=== PATIENT | female | born 1965 | race Caucasian/White ===

== ENCOUNTER → 2016-10-24 | Outpatient (CLI) | payer BC ==
--- NOTE | 2016-10-25 12:32 | MAMMOGRAPHY REPORT ---
ULTRASOUND OF BOTH BREASTS: 10/24/2016 CLINICAL HISTORY: 50 year-old woman with no strong family history of breast cancer presents for [facility] whole breast screening ultrasound for dense breasts, and also to follow-up a probably benign c ircumscribed oval hypoechoic solid-appearing mass in the right breast. COMPARISON: Comparison is made to exams dated: 04/25/2016 mammogram, 02/23/2015 mammogram, 02/17/2014 mammogram, 02/14/2013 ultrasound, 03/01/2012 mammogram, and 01/27/2011 mammogram - [facility]. TECHNIQUE: Real-time high-resolution grayscale ultrasound including color flow Doppler was performed throughout each breast, including the retroareolar breast, and both axillae. FINDINGS: The right breast parenchymal echotexture is heterogeneousdense. In the 11:30 to 12:00 r ight breast, 1 cm from the nipple, there is a rounded hypoechoic solid-appearing mass measuring 8.5 x 7.1 x 10.3 mm. In the 12:00 right breast, 1 cm from the nipple, there is an oval parallel circums cribed hypoechoic solid-appearing mass measuring 6.6 x 4.3 x 7.7 mm. There is an adjacent hypoechoi c solid versus cystic masses, oval, parallel and circumscribed. This measures 7.6 x 6.3 mm. A pollo gn anechoic simple cyst is identified in the right 11:00 breast, 4 cm from the nipple, measuring 10. 5 x 10.6 x 11.0 mm. 2 abutting anechoic cysts are seen in the superficial 11:00 right breast, 2 cm from the nipple, measuring 27.6 x 8.3 mm in conglomerate. There is a rounded nearly anechoic cystic appearing mass in the 10:00 periareolar right breast measuring 4.4 x 4.8 x 5.4 mm. A hypoechoic po ssible solid mass versus cystic mass with internal debris is identified in the 10:00 right breast, 3 cm from the nipple, measuring 6.0 x 4.6 x 6.7 mm. There is a multilobulated cyst with multiple int ernal nonvascular septations in the 9:00 right breast, 8 cm from the nipple, measuring 15.7 x 6.8 x 13.4 mm. In the 9:00 right breast, 4 cm from the nipple, there is a nearly anechoic cystic appearin g mass with posterior acoustic enhancement, measuring 14.3 mm in maximum dimension. An isoechoic so lid-appearing mass in the 9:00 right breast, to 7 m from the nipple measures 5.7 x 4.1 mm. This is not as well appreciated in the radial plane and may simply represent stromal fibrosis. There is a r ounded hypoechoic to nearly anechoic cystic appearing mass in the 8:00 right breast, 8 cm from the n ipple, measuring 5.7 x 4.6 x 8.8 mm. A few other smaller scattered cysts are seen throughout the ri ght breast and real-time scanning. No other discrete solid or suspicious mass is identified. No [place] spicious right axillary lymphadenopathy. The left breast parenchymal echotexture is heterogeneousdense. In the 12:00 left breast, 1 cm from the nipple, there is a rounded hypoechoic solid versus cystic masses measuring 4.9 x 4.9 x 4.4 mm. A probable cyst with internal nonvascular septation and thickened rim in the 12:00 periareolar left breast measures 7.4 x 5.2 x 4.7 mm. There is a bilobed solid-appearing mass in the 1:30 left breas t, 7 cm from the nipple, measuring 4.7 x 2.4 x 4.7 mm. A dominant anechoic simple cyst is again see n in the 1:30 left breast, 12 cm from the nipple, measuring 20.2 x 14.6 mm. There is a lobulated hy poechoic cystic-appearing mass in the 4:00 left breast, 6 cm from the nipple, measuring 8.2 x 6.7 x 6.7 mm. A rounded hypoechoic solid versus cystic mass in the 7:00 left breast, 5 cm from the nipple , measures 4.7 x 4.1 x 5.6 mm. Another cystic-appearing mass in the 9:00 left breast, 4 cm from the nipple, measures 5.1 x 3.1 x 3.9 mm. There is an isoechoic, slightly hypoechoic solid versus cysti c mass in the 10:00 left breast, 3 cm from the nipple, measuring 9.1 x 6.0 x 9.2 mm. Other smaller anechoic simple cysts were identified throughout the left breast and real-time scanning. No other s uspicious solid mass is seen. No suspicious left axillary lymphadenopathy. IMPRESSION: ACR BI-RADS CATEGORY 4: SUSPICIOUS - FOLLOW-UP RECOMMENDED There are multiple cysts scattered bilaterally in the breasts, compatible with fibrocystic changes. There are benign appearing circumscribed solid masses in the breasts as well which most likely repr esent benign fibroadenomas. However, biopsy of the dominant mass in each breast is recommended (the 9 mm mass in the 10:00 left breast, 3 cm from the nipple, and the 10 mm mass in the 11:30 right jose ast, 1 cm from the nipple), and pending benign pathology results the other solid appearing masses ca n be followed in short intervals to ensure stability. These results and recommendations were discussed with the patient at the time of the exam. She tent atively scheduled the biopsies prior to leaving our department. Marilee Artis M.D. ay/:10/24/2016 17:51:03 Electric Sign Wirer: Dr. Marilee Artis, [facility] letter sent: Abnormal 4/5 BI-RADS Code: ACR BI-RADS Category 4: Suspicious
== END | disposition home or self-care (01) ==
LOC: C.MAMM 08:10
PROVIDERS: ATTEND Obstetrics & Gynecology
DX: R92.2 Inconclusive mammogram (principal); N63 Unspecified lump in breast; N60.01 Solitary cyst of right breast; N60.02 Solitary cyst of left breast

== ENCOUNTER → 2016-10-31 | Outpatient (CLI) | payer BC ==
--- NOTE | 2016-10-31 13:44 | Discharge Instructions ---
Discharge Instructions Procedure Procedure Date: Oct 31, 2016. Reason for visit: Bilateral Masses. Discharge Discharge Date: Oct 31, 2016. Discharge Diagnosis: post left breast ultrasound guided cyst aspiration and right breast ultrasound guided core biopsy Instructions Activity Recommendations: Additional Limitations (see below) Return to School/Work: no limitations Recommended Home Diet: No Limitations Provider Instructions: ACTIVITY RECOMMENDATIONS: * No lifting, pushing, pulling or exercising the affected side for three days. RETURN TO SCHOOL/WORK: * You may return to work/school after the procedure, but do not perform any strenuous activities for 24 to 48 hours. MEDICATIONS: * Tylenol (two 325 mg) every four to six hours if needed for mild pain (if not allergic to Tylenol). DIET: * Resume previous diet. SPECIAL CARE INSTRUCTIONS: * Keep biopsy site dry for 24 hours. May shower after 24 hours, but do not soak (bathe) incision. * May remove Tegaderm (plastic patch) tomorrow AFTER showering. * Leave the steri-strips on for one week. Allow the steri-strips to fall off by themselves. If not off after one week, you may remove them. You may place a Bandaid crosswise over the strips, if desired. * Apply ice 10 minutes on and 10 minutes off as needed. * Wear a bra at bedtime to sleep more comfortably for 2-3 days. * Your referring physician should have the results after approximately 5 to 7 business days. * Call for unusual bleeding, fever, drainage, etc or if you have any questions call [phone] during normal business hours or after hours call Dr Artis, . FOLLOW UP VISIT: Follow-up with Referring Physician as scheduled. Katelynn Siegel Recommendations: Call your doctor if: * Temperature above 101 degrees * Pain not relieved by pain medicine ordered * There is increased drainage or redness from any incision * You have any unanswered questions or concerns. Your Doctors Instructions noted above were prepared by provider Marilee Artis. Patient Signature Section: Patient Instructions Signature Page Fatmata Hunt Patient (or Guardian) Signature/Date: I have read and understand the instructions given to me by my caregivers. Caregiver/RN/Doctor Signature/Date: The above-named patient and/or guardian has received patient instructions on this date. + Original Patient Signature Page (only) stays with chart. Please make copy for patient.
--- NOTE | 2016-10-31 16:38 | MAMMOGRAPHY REPORT ---
UNILATERAL RIGHT DIGITAL DIAGNOSTIC MAMMOGRAM TOMOSYNTHESIS: 10/31/2016 CLINICAL HISTORY: Status post ultrasound-guided core biopsy of an indeterminate solid mass in the 12 :00 right breast. Also performed at the same time wasn't ultrasound guided cyst aspiration in the 1 0:00 left breast. Please refer to the report from right breast ultrasound guided core biopsy performed at the same jory e for full detail. IMPRESSION: POST PROCEDURE IMAGING FOR MARKER PLACEMENT Please refer to the report from right breast ultrasound guided core biopsy performed at the same jory e for full detail. Approximately 10% of breast cancers are not detected with mammography. A negative mammographic repor t should not delay biopsy if a clinically suggestive mass is present. Marilee Artis M.D. ay/:10/31/2016 14:33:36 Lot Associate: Jennifer HERNANDEZ)(Leticia), [facility] BI-RADS Code: Post Procedure Imaging For Marker Placement
--- NOTE | 2016-10-31 16:38 | MAMMOGRAPHY REPORT ---
ULTRASOUND GUIDED BIOPSY RIGHT BREAST: 10/31/2016 CLINICAL HISTORY: Multiple masses scattered in each breast, some of which are cystic and others appe ar solid. Patient presents for ultrasound-guided core biopsy for the dominant solid mass in each br east. COMPARISON: Comparison is made to exams dated: 10/24/2016 ultrasound, 04/25/2016 ultrasound, 6 mammogram, 02/28/2016 mammogram, 02/23/2015 mammogram, and 02/17/2014 mammogram - [facility]. PATIENT CONSENT: The procedure, risks and benefits were discussed with the patient and informed writ ten consent was obtained. Specific risks to this procedure include: bleeding, infection, puncture of adjacent structure, nontarget biopsy, sampling error, metal allergy and medication reaction. PROCEDURE DESCRIPTION: First real-time high-resolution ultrasound was performed in the 12:00 right b reast and 10:00 left breast to reevaluate the hypoechoic solid-appearing mass is identified on prior ultrasound performed 10/24/2016. There are again seen and appears similar to the prior exam. Curr ently the mass in the 12:00 right breast appears more solid in nature while the mass in the 10:00 le ft breast may be cystic in nature given that there is faint posterior acoustic enhancement appreciat ed. This area is difficult to evaluate given the depth in the breast surrounded by dense breast tis demetrio and location abutting the pectoralis muscle. I explained to the patient that ultrasound guided cyst aspiration could be attempted prior to core biopsy to see if this mass in the 10:00 left breast indeed represents a cyst. A time out was performed and both breasts were agreed as the sites for biopsy. First the mass in th e 12:00 right breast, 1 cm from the nipple was identified and targeted for biopsy. The skin of the right breast was cleansed with Betadine. 1% buffered lidocaine with and without epinephrine was adm inistered as local anesthesia. A small incision was made in the skin. Through the incision, 4 core biopsy samples were obtained with a 14-gauge achieve spring-loaded biopsy device. A ribbon-shaped metallic biopsy marker was placed within the metal residual mass. The patient tolerated the procedu re well and there was no immediate consultation. Hemostasis was achieved after a few minutes of man ual compression. The samples were sent to the pathology department expedited, in an appropriately l abeled container. And then the isoechoic solid versus cystic mass in the 10:00 left breast was identified and targeted for biopsy. The skin of the left breast was cleansed with Betadine. Sterile drapes were placed in the area. 1% buffered lidocaine with and without epinephrine was administered as local anesthesia. A 22-gauge needle was then advanced to the site of the mass and within the mass and aspiration was performed. This mass resolved completely. After documenting the resolution with an additional ult rasound image, the fluid was sent for cytologic analysis. The patient tolerated the procedure in th e left breast well and there was no significant bleeding after the procedure. Postprocedure right CC and ML 2-D digital and tomosynthesis images were obtained. There is a new ri bbon-shaped metallic biopsy marker in the 12:00 right breast, at the site of the biopsied mass seen on prior ultrasound. Pending benign pathology results and follow-up bilateral diagnostic mammograms and repeat targeted u ltrasound is recommended for other similar appearing smaller masses bilaterally. IMPRESSION: ULTRASOUND GUIDED BIOPSY Status post ultrasound guided core needle biopsy of an indeterminate solid mass in the 12:00 right b reast, and ultrasound-guided cyst aspiration of a cystic mass in the 10:00 left breast. Pending benign pathology results, follow-up bilateral diagnostic mammograms and repeat targeted ultr asound is recommended to ensure stability of other smaller similar appearing masses within each suzie st. Marilee Artis M.D. ay/:10/31/2016 14:31:59 Marble Finisher: Jennifer HERNANDEZ)Shamika), [facility]
== END | disposition home or self-care (01) ==
LOC: C.MAMM 12:35
PROVIDERS: ATTEND Obstetrics & Gynecology
DX: N60.82 Other benign mammary dysplasias of left breast (principal); N60.31 Fibrosclerosis of right breast

== ENCOUNTER → 2017-04-19 | Outpatient (CLI) | payer BC | END | disposition home or self-care (01) | LOC: C.PAPS 11:56 | PROVIDERS: ATTEND Obstetrics & Gynecology | DX: Z01.419 Encounter for gynecological examination (general) (routine) without abnormal findings (principal) ==

== ENCOUNTER → 2017-05-03 | Outpatient (CLI) | payer BC ==
--- NOTE | 2017-05-04 14:55 | MAMMOGRAPHY REPORT ---
BILATERAL DIGITAL DIAGNOSTIC MAMMOGRAM TOMOSYNTHESIS WITH CAD AND TARGETED BILATERAL ULTRASOUND: 05/03 CLINICAL HISTORY: Short interval follow-up of bilateral breast masses. History of benign ultrasound- guided core needle biopsy of a right 12:00 breast mass October 2016. Also with ultrasound guided aspir ation of a left breast mass. TECHNIQUE: Breast tomosynthesis in addition to standard 2D mammography was performed. Current study was also evaluated with a Computer Aided Detection (CAD) system. Bilateral CC and MLO 2-D and tomosy nthesis images were obtained. COMPARISON: Comparison is made to exams dated: 10/31/2016 mammogram, 10/31/2016 ultrasound biopsy, 10/05 ultrasound, 04/25/2016 ultrasound, 04/25/2016 mammogram, and 02/28/2016 mammogram - [facility]. BREAST COMPOSITION: The tissue of both breasts is extremely dense, which lowers the sensitivity of m ammography. FINDINGS: There are no suspicious masses, calcifications, or areas of architectural distortion noted in either breast mammographically. There has been no significant interval change compared to prior exams. A biopsy marker clip is noted in the right upper outer quadrant from prior benign ultrasound guided biopsy. Scattered bilateral benign-appearing calcifications are not significantly changed. M ultiple obscured masses are again noted bilaterally, which correspond with the masses seen on ultraso und. Targeted ultrasound was performed of the area of the previously seen masses for which follow-up was r ecommended. The right breast at 12:00, 1 cm from the nipple, again noted is a round circumscribed hy poechoic 5 x 6 mm mass, not significantly changed. Another hypoechoic circumscribed 5 mm mass in the right 12:00 breast, 1 cm from the nipple, is also unchanged. In the right breast at 8:00, 8 cm from the nipple, again noted is a bilobed circumscribed hypoechoic mass which measures 1.8 x 0.4 x 0.6 cm , unchanged compared to the October 2016 exam when accounting for differences in measurement technique. These hypoechoic masses likely represent complicated cysts. In the right breast at 9:00, 2 cm from the nipple, there is an isoechoic 6 x 3 x 6 mm mass which is stable and is probably benign and likel y represents normal breast tissue. In the right breast at 9:00, 4 cm from the nipple, there is a rou nd circumscribed partially anechoic and partially hypoechoic 1.4 cm mass which is stable and likely r epresents a complicated cyst. In the right breast at 10:00, 3 cm from the nipple, there is a round c ircumscribed 5 x 5 mm mass which is partially anechoic and partially hypoechoic, which is not signifi cantly changed and likely represents a complicated cyst. In the right breast at 10:00 periareolar re gion, there is a nearly anechoic circumscribed round 5 x 5 x 5 mm mass, which is unchanged and is pro bably benign and likely represents a cyst. In the left breast at 12:00, 1 cm from the nipple, there is an oval nearly anechoic circumscribed 10 x 8 mm mass which likely represents a cyst. Also in the left breast at 12:00, 1 cm from the nipple, is a round circumscribed hypoechoic 4 x 5 x 5 mm mass which is unchanged and likely represents a cyst . In the left 12:00 periareolar breast, there is a anechoic circumscribed mass with a thin internal septation measuring 6 x 5 mm, not significantly changed and likely represents a small cyst cluster. In the left breast at 1:30, 7 cm from the nipple, there is an oval circumscribed hypoechoic 5 x 4 mm mass, also unchanged and likely represents a cyst. In the left breast at 4:00, 6 cm from the nipple, there is a round circumscribed hypoechoic 5 x 4 mm mass, which appears decreased compared to the Yonatan h 2017 exam, previously measuring 8 x 7 x 7 mm, and is considered benign given the interval decrease in size and likely represents a cyst. In the left breast at 7:00, 5 cm from the nipple, there is a r ound hypoechoic circumscribed 4 x 4 mm mass, not significantly changed and likely represents a cyst. In the left breast at 9:00, 4 cm from the nipple, there is an oval circumscribed hypoechoic 5 x 5 mm mass, not significantly changed and likely represents a cyst. In the left breast at 10:00, 3 cm in the nipple, there is an oval circumscribed hypoechoic 9 x 5 mm mass, not significantly changed. Given the multiplicity and bilaterality of the hypoechoic masses and given the benign morphology incl uding circumscribed margins, the masses are probably benign and likely represent cysts, versus benign solid masses such as fibroadenomas. Recommend another short interval follow-up ultrasound in 6 tang hs to confirm longer stability. IMPRESSION: ACR-BI-RADS CATEGORY 3: PROBABLY BENIGN, TARGETED ULTRASOUND ACR-BI-RADS CATEGORY 3: PRO BABLY BENIGN 1. No mammographic evidence of malignancy in either breast. Recommend routine bilateral screening m ammograms in one year. 2. Multiple bilateral circumscribed hypoechoic masses are not significantly changed compared to the October 2016 ultrasound exam, and are probably benign and likely represent complicated cysts. Recommen d follow-up targeted bilateral ultrasound in 6 months to confirm longer stability of the masses (30 m inute time slot). The patient has been verbally notified of the results. Approximately 10% of breast cancers are not detected with mammography. A negative mammographic report should not delay biopsy if a clinically suggestive mass is present. Alexa Washington M.D. ah/:05/04/2017 07:26:15 Striper: Betsy Morales, [facility] letter sent: Follow Up Recommended 3 BI-RADS Code: ACR-BI-RADS Category 3: Probably Benign Ultrasound BI-RADS: ACR-BI-RADS Category 3: Pr obably Benign
== END | disposition home or self-care (01) ==
LOC: C.MAMM 08:05
PROVIDERS: ATTEND Obstetrics & Gynecology
DX: N63 Unspecified lump in breast (principal)

== ENCOUNTER → 2017-10-31 | Outpatient (CLI) | payer OTHER ==
--- NOTE | 2017-11-02 07:22 | MAMMOGRAPHY REPORT ---
ULTRASOUND OF BOTH BREASTS: 10/31/2017 CLINICAL HISTORY: 51-year-old woman with a history of prior benign right breast ultrasound-guided cor e biopsy and left breast cyst aspiration as well as extremely dense breasts presents for follow-up ul trasound of probably benign cystic versus benign-appearing solid masses in both breasts on ultrasound . Seen. COMPARISON: Comparison is made to exams dated: 05/03/2017 mammogram, 05/03/2017 ultrasound, 10/31/2016 mammogram, 10/31/2016 ultrasound biopsy, 10/24/2016 ultrasound, and 04/25/2016 ultrasound - [facility]. FINDINGS: Real-time high resolution sonographic evaluation was performed in each breast, with particu lar attention to the benign-appearing hypoechoic possible cystic versus solid masses bilaterally. In the 12:00 left breast, 1 cm from the nipple, there is an oval parallel circumscribed hypoechoic dai d versus cystic mass abutting the pectoralis muscle, measuring 12 x 5 x 11 mm. This has not signific antly changed comparing to the prior ultrasound given slight differences in measuring technique, [facility] x 10 mm. Also in the 12:00 left breast, 1 cm from the nipple, there is a rou nd hypoechoic solid versus cystic mass with faint posterior acoustic enhancement appreciated, measuri ng 4 x 5 x 5 mm, previously 4 x 5 x 5 mm. In the 12:00 periareolar left breast a cystic-appearing ma ss is no longer seen. In the 130 left breast, 7 cm from the nipple, there is a gently lobulated para llel hypoechoic solid versus cystic mass measuring 6 x 3 x 5 mm, previously 5 x 4 mm, unchanged. In the 7:00 left breast, 5 cm from the nipple, there is a small circumscribed hypoechoic versus anechoic cystic-appearing mass measuring 4 x 3 x 4 mm, previously 4 x 4 mm, unchanged. In the 9:[address], 4 cm from the nipple, there is an oval parallel hypoechoic cystic-appearing mass measuring 5 x 2 x 6 mm, previously 5 x 5 mm. In the 10:00 left breast, 3 cm from the nipple, there is a lobulated hy poechoic solid versus cystic mass measuring 4 x 3 x 5 mm, previously measured 5 x 9 mm. Additional s moreno in the 10:00 left breast does not demonstrate reaccumulation of the previously aspirated cyst . In the right 12:00 breast, 1 cm from the nipple, there are 2 hypoechoic solid versus cystic masses, m easuring 7 x 5, and 5 x 5 mm. These have not significantly changed comparing to the ultrasound at ich time they measured 5 x 6 and 5 x 5 mm. In the 8:00 right breast, 8 cm from the nipple, there is a multilobulated mass versus 2 abutting masses measuring 9 x 9 mm, previously measured 13 x 6 mm in c onglomerate, unchanged given differences in measuring technique. In the 8:00 right breast, 8 cm from the nipple, there is an oval parallel circumscribed hypoechoic mass with faint posterior acoustic en hancement abutting the pectoralis muscle, measuring 6 mm. In the 9:00 right breast, 2 cm from the ni pple, there is a lobulated isoechoic solid-appearing mass measuring 6 x 4 x 8 mm, previously measured 6 x 3 x 6 mm, unchanged visually with slight differences in measuring technique. A previously obser janet mass in the 10:00 right breast, 3 cm from the nipple is currently labeled 9:00 breast, 4 cm from the nipple and has decreased in size, currently measuring 4 mm. Another cystic-appearing mass in the 10:00 periareolar right breast is also unchanged measuring 5 x 5 mm. IMPRESSION: ACR-BI-RADS CATEGORY 3: PROBABLY BENIGN - FOLLOW-UP RECOMMENDED 1. There are multiple bilateral cysts, probable complicated cysts and a few benign-appearing solid ma sses in both breasts which are stable, decreased or resolved on ultrasound, most likely benign with o ne year of stability. Another 12 month follow-up bilateral ultrasound is recommended to ensure at le ast 2 years of stability to confirm benignity. Would consider complete/whole breast ultrasound at th at time to ensure inclusion of all of the possible masses (45 minutes). 2. Would also recommend continuation of annual screening mammography schedule, due 2017. These results and recommendation were discussed with the patient at the time of the exam. Marilee Artis M.D. ay/:11/01/2017 11:49:45 Willow Specialists: Betsy ANTHONY(Leonardo)(Leticia), [facility] letter sent: Follow Up Recommended 3 BI-RADS Code: ACR-BI-RADS Category 3: Probably Benign
== END | disposition home or self-care (01) ==
LOC: C.MAMM 11:07
PROVIDERS: ATTEND Obstetrics & Gynecology
DX: N60.01 Solitary cyst of right breast (principal); N60.02 Solitary cyst of left breast; N63.10 Unspecified lump in the right breast, unspecified quadrant; N63.20 Unspecified lump in the left breast, unspecified quadrant